=== PATIENT | male | born 1985 | race Caucasian/White ===

== ENCOUNTER 2018-03-06 07:01 | Emergency (ER) | payer SELFPAY ==
[~2018-03-06] VITALS: Ht 157.5 cm; Wt 64.0 kg
[2018-03-06] MEDS ORDERED: ONDANSETRON HCL 4MG/2ML VIAL IV ONE (07:45)
[2018-03-06] MEDS ORDERED: FOLIC ACID 1 MG, THIAMINE HCL 100 MG, MVI, ADULT NO.1 10 ML in DEXTROSE 5% WATER 1,000 ML IV ONE ×4 (07:45)
[2018-03-06 08:22] LABS: BASOPHILS % 1.2 % (0.0-2.0); CHLORIDE 103 mEq/L (98-107); EOSINOPHILS % 0.7 % (0.0-5.0); HEMATOCRIT. 40.9 % (42.0-52.0); HEMOGLOBIN. 14.3 g/dL (14.0-18.0); LYMPHOCYTES % 19.8 % (20.0-50.0); MEAN CORPUSCULAR HEMOGLOBIN 30.8 pg (28.0-32.0); MEAN CORPUSCULAR VOLUME 88.3 fL (80.0-94.0); MEAN PLATELET VOLUME 6.4 fl (7.4-10.4); MONOCYTES % 10.2 % (2.0-8.0); NEUTROPHILS % 68.1 % (40.0-76.0); PLATELET 315 x1000/uL (130-400); RED BLOOD CELL COUNT 4.63 mill/uL (4.7-6.1); RED CELL DISTRIBUTION WIDTH 14.1 % (11.6-14.6)
[2018-03-06 08:27] LABS: ETHANOL BLOOD 229 mg/dL
[2018-03-06 08:55] LABS: CLARITY URINE CLEAR (CLEAR); COLOR URINE YELLOW (YELLOW); KETONES URINE TRACE (NEGATIVE); LEUKOCYTE ESTERASE URINE NEGATIVE (NEGATIVE); NITRITE URINE NEGATIVE (NEGATIVE); OCCULT BLOOD URINE NEGATIVE (NEGATIVE); PROTEIN URINE TRACE (NEGATIVE); SPECIFIC GRAVITY URINE 1.022 (1.005-1.030)
[2018-03-06 09:10] LABS: *AMPHETAMINES SCREEN URINE NEGATIVE (NEGATIVE); *BARBITURATES SCREEN URINE NEGATIVE (NEGATIVE); *BENZODIAZEPINES SCREEN URINE NEGATIVE (NEGATIVE); CANNABINOID URINE SCREEN PRESUMTIVE POSITIVE (NEGATIVE)
[2018-03-06 09:11] LABS: *COCAINE SCREEN URINE NEGATIVE (NEGATIVE); METHADONE URINE SCREEN NEGATIVE (NEGATIVE); OPIATES URINE SCREEN NEGATIVE (NEGATIVE); PHENCYCLIDINE URINE SCREEN PRESUMTIVE POSITIVE (NEGATIVE)
[2018-03-06] MEDS ORDERED: LORAZEPAM 2MG/ML CPJ IV ONE (18:45)
[2018-03-06] MEDS ORDERED: METOCLOPRAMIDE HCL 10MG/2ML VIAL IV ONE (18:45)
[2018-03-06] MEDS ORDERED: FAMOTIDINE 20MG/2ML VIAL IV ONE (18:45)
[2018-03-07 02:59] VITALS: BP 127/69
== END 2018-03-07 03:05 | disposition home or self-care (01) ==
LOC: ER 07:01
DX: F10.229 Alcohol dependence with intoxication, unspecified (principal); R04.0 Epistaxis; K29.00 Acute gastritis without bleeding; I10 Essential (primary) hypertension; F12.10 Cannabis abuse, uncomplicated; F16.10 Hallucinogen abuse, uncomplicated; Y90.7 Blood alcohol level of 200-239 mg/100 ml
CPT/HCPCS: 36415; 80053; 80305; 81003; 83690; 85025; 85610; 96365; 96366; 96375; 99285; G0482; J2060; J2405; J2765; J3411; J3490; J7070

== ENCOUNTER 2018-03-07 13:44 | Emergency (ER) | payer SELFPAY ==
[~2018-03-07] VITALS: Ht 165.1 cm; Wt 72.0 kg
[2018-03-07 14:51] LABS: HEMATOCRIT. 42.8 % (42.0-52.0); HEMOGLOBIN. 14.9 g/dL (14.0-18.0); MEAN CORPUSCULAR HEMOGLOBIN 30.5 pg (28.0-32.0); MEAN CORPUSCULAR VOLUME 87.9 fL (80.0-94.0); MEAN PLATELET VOLUME 7.2 fl (7.4-10.4); PLATELET 297 x1000/uL (130-400); RED BLOOD CELL COUNT 4.87 mill/uL (4.7-6.1); RED CELL DISTRIBUTION WIDTH 13.6 % (11.6-14.6)
[2018-03-07] MEDS ORDERED: MAGNESIUM/ALUMINUM HYDROXIDE/SIMETHICONE 30ML UDC PO STA (14:52)
[2018-03-07] MEDS ORDERED: SODIUM CHLORIDE 0.9% 1,000 ML IV ONE (14:52)
[2018-03-07] MEDS ORDERED: FAMOTIDINE 20MG/2ML VIAL IV STA (14:52)
[2018-03-07] MEDS ORDERED: ONDANSETRON HCL 4MG/2ML VIAL IV STA (14:52)
[2018-03-07] MEDS ORDERED: MORPHINE SULFATE 4 MG/ML CPJ (NOT FOR IM USE) IV STA (14:52)
[2018-03-07 14:58] LABS: CLARITY URINE CLEAR (CLEAR); COLOR URINE YELLOW (YELLOW); KETONES URINE NEGATIVE (NEGATIVE); LEUKOCYTE ESTERASE URINE NEGATIVE (NEGATIVE); NITRITE URINE NEGATIVE (NEGATIVE); OCCULT BLOOD URINE NEGATIVE (NEGATIVE); PH URINE 7.5 (4.5-8.0); PROTEIN URINE NEGATIVE (NEGATIVE); SPECIFIC GRAVITY URINE 1.004 (1.005-1.030)
[2018-03-07] MEDS ORDERED: LORAZEPAM 2MG/ML CPJ IV ONE (15:00)
[2018-03-07 15:07] LABS: CHLORIDE 96 mEq/L (98-107)
[2018-03-07 15:11] LABS: PROTHROMBIN TIME 9.9 sec (9.1-11.1)
[2018-03-07 15:12] LABS: ETHANOL BLOOD < 10 mg/dL
[2018-03-07 15:16] LABS: CREATINE KINASE 394 IU/L (39-308)
[2018-03-07 15:25] LABS: *AMPHETAMINES SCREEN URINE NEGATIVE (NEGATIVE); *BARBITURATES SCREEN URINE NEGATIVE (NEGATIVE); *BENZODIAZEPINES SCREEN URINE NEGATIVE (NEGATIVE); *COCAINE SCREEN URINE NEGATIVE (NEGATIVE); METHADONE URINE SCREEN NEGATIVE (NEGATIVE); OPIATES URINE SCREEN NEGATIVE (NEGATIVE)
[2018-03-07 15:26] LABS: CANNABINOID URINE SCREEN NEGATIVE (NEGATIVE); PHENCYCLIDINE URINE SCREEN NEGATIVE (NEGATIVE)
[2018-03-07 15:46] LABS: PLATELET ESTIMATE NORMAL
[2018-03-07 17:48] VITALS: BP 128/74
== END 2018-03-07 18:00 | disposition home or self-care (01) ==
LOC: ER 14:20
DX: S22.31XA Fracture of one rib, right side, initial encounter for closed fracture (principal); K29.70 Gastritis, unspecified, without bleeding; R11.2 Nausea with vomiting, unspecified; F10.20 Alcohol dependence, uncomplicated; F14.10 Cocaine abuse, uncomplicated; I10 Essential (primary) hypertension; Z87.81 Personal history of (healed) traumatic fracture; W19.XXXA Unspecified fall, initial encounter; Y93.89 Activity, other specified; Y92.89 Other specified places as the place of occurrence of the external cause; Y99.8 Other external cause status; Y90.9 Presence of alcohol in blood, level not specified
CPT/HCPCS: 36415; 71045; 71250; 80053; 80305; 81003; 82550; 83690; 84484; 85025; 85610; 93005; 96361; 96374; 96375; 99285; G0482; J2060; J2270; J2405; J3490; J7030; Z7610

== ENCOUNTER 2018-03-12 14:48 | Emergency (ER) | payer SELFPAY ==
[2018-03-12 16:55] LABS: BASOPHILS % 1.2 % (0.0-2.0); CHLORIDE 101 mEq/L (98-107); EOSINOPHILS % 0.8 % (0.0-5.0); HEMATOCRIT. 38.2 % (42.0-52.0); HEMOGLOBIN. 13.1 g/dL (14.0-18.0); LYMPHOCYTES % 24.9 % (20.0-50.0); MEAN CORPUSCULAR VOLUME 87.4 fL (80.0-94.0); MEAN PLATELET VOLUME 7.1 fl (7.4-10.4); MONOCYTES % 14.4 % (2.0-8.0); NEUTROPHILS % 58.7 % (40.0-76.0); PLATELET 214 x1000/uL (130-400); RED BLOOD CELL COUNT 4.38 mill/uL (4.7-6.1); RED CELL DISTRIBUTION WIDTH 14.5 % (11.6-14.6)
[2018-03-12 16:57] LABS: PROTHROMBIN TIME 9.7 sec (9.1-11.1)
[2018-03-12] MEDS ORDERED: ONDANSETRON HCL 4MG/2ML VIAL IV STA (17:12)
[2018-03-12] MEDS ORDERED: VISCOUS LIDOCAINE 2% 15 ML UDC MM STA (17:12)
[2018-03-12] MEDS ORDERED: SODIUM CHLORIDE 0.9% 1,000 ML IV ONE (17:12)
[2018-03-12] MEDS ORDERED: LIDOCAINE HCL 2% JELLY 5ML ONE (19:01)
[2018-03-12 20:26] VITALS: BP 128/65
== END 2018-03-12 20:54 | disposition home or self-care (01) ==
LOC: ER 14:48
DX: R04.0 Epistaxis (principal); I10 Essential (primary) hypertension; F10.20 Alcohol dependence, uncomplicated
CPT/HCPCS: 30901; 36415; 80053; 83690; 85025; 85610; 96361; 96374; 99285; J2405; J7030; X7700; Z7610

== ENCOUNTER 2018-05-11 02:03 | Emergency (ER) | payer SELFPAY ==
[~2018-05-11] VITALS: Ht 160 cm; Wt 68.0 kg
[2018-05-11] MEDS ORDERED: SODIUM CHLORIDE 0.9% 1,000 ML IV NR (03:17)
[2018-05-11 03:50] LABS: BASOPHILS % 0.8 % (0.0-2.0); EOSINOPHILS % 0.7 % (0.0-5.0); HEMATOCRIT. 43.2 % (42.0-52.0); HEMOGLOBIN. 14.8 g/dL (14.0-18.0); MEAN CORPUSCULAR HEMOGLOBIN 29.1 pg (28.0-32.0); MEAN CORPUSCULAR VOLUME 84.7 fL (80.0-94.0); MEAN PLATELET VOLUME 7.5 fl (7.4-10.4); MONOCYTES % 7.9 % (2.0-8.0); NEUTROPHILS % 51.6 % (40.0-76.0); PLATELET 219 x1000/uL (130-400); RED CELL DISTRIBUTION WIDTH 13.6 % (11.6-14.6)
[2018-05-11 03:56] LABS: CHLORIDE 106 mEq/L (98-107)
[2018-05-11] MEDS ORDERED: LORAZEPAM 2MG/ML CPJ IV ONE (04:00)
[2018-05-11 04:09] LABS: ETHANOL BLOOD 341 mg/dL
[2018-05-11 04:40] LABS: CLARITY URINE CLEAR (CLEAR); COLOR URINE YELLOW (YELLOW); KETONES URINE NEGATIVE (NEGATIVE); LEUKOCYTE ESTERASE URINE NEGATIVE (NEGATIVE); NITRITE URINE NEGATIVE (NEGATIVE); OCCULT BLOOD URINE NEGATIVE (NEGATIVE); PH URINE 5.5 (4.5-8.0); PROTEIN URINE 1+ (NEGATIVE); SPECIFIC GRAVITY URINE 1.017 (1.005-1.030)
[2018-05-11 04:53] LABS: *AMPHETAMINES SCREEN URINE NEGATIVE (NEGATIVE); *BARBITURATES SCREEN URINE NEGATIVE (NEGATIVE); *BENZODIAZEPINES SCREEN URINE NEGATIVE (NEGATIVE); *COCAINE SCREEN URINE NEGATIVE (NEGATIVE); METHADONE URINE SCREEN NEGATIVE (NEGATIVE)
[2018-05-11 04:54] LABS: CANNABINOID URINE SCREEN NEGATIVE (NEGATIVE); OPIATES URINE SCREEN NEGATIVE (NEGATIVE); PHENCYCLIDINE URINE SCREEN NEGATIVE (NEGATIVE)
[2018-05-11] MEDS ORDERED: SODIUM CHLORIDE 0.9% 1,000 ML IV ONE (06:41)
[2018-05-11 10:03] VITALS: BP 121/66
== END 2018-05-11 10:06 | disposition home or self-care (01) ==
LOC: ER 02:03
DX: S62.512A Displaced fracture of proximal phalanx of left thumb, initial encounter for closed fracture (principal); S00.83XA Contusion of other part of head, initial encounter; M25.571 Pain in right ankle and joints of right foot; I10 Essential (primary) hypertension; F15.10 Other stimulant abuse, uncomplicated; F10.229 Alcohol dependence with intoxication, unspecified; W01.0XXA Fall on same level from slipping, tripping and stumbling without subsequent striking against object, initial encounter; Y93.89 Activity, other specified; Y92.89 Other specified places as the place of occurrence of the external cause; Y99.8 Other external cause status; Y90.8 Blood alcohol level of 240 mg/100 ml or more
CPT/HCPCS: 36415; 70450; 73130; 73610; 80048; 80305; 81003; 85025; 96374; 99285; G0482; J2060; J7030

== ENCOUNTER 2018-10-26 21:13 | Emergency (ER) | payer SELFPAY ==
[~2018-10-26] VITALS: Ht 160 cm; Wt 62.0 kg
[2018-10-26 23:47] LABS: HEMATOCRIT. 42.7 % (42.0-52.0); MEAN CORPUSCULAR VOLUME 88.1 fL (80.0-94.0); MEAN PLATELET VOLUME 6.6 fl (7.4-10.4); PLATELET 126 x1000/uL (130-400); RED BLOOD CELL COUNT 4.84 mill/uL (4.7-6.1); RED CELL DISTRIBUTION WIDTH 13.4 % (11.6-14.6)
[2018-10-26 23:54] LABS: CHLORIDE 106 mEq/L (98-107)
[2018-10-27 00:08] LABS: CLARITY URINE CLEAR (CLEAR); COLOR URINE YELLOW (YELLOW); KETONES URINE NEGATIVE (NEGATIVE); LEUKOCYTE ESTERASE URINE NEGATIVE (NEGATIVE); NITRITE URINE NEGATIVE (NEGATIVE); OCCULT BLOOD URINE NEGATIVE (NEGATIVE); PH URINE 5.5 (4.5-8.0); PROTEIN URINE 1+ (NEGATIVE); SPECIFIC GRAVITY URINE 1.006 (1.005-1.030); UROBILINOGEN URINE 0.2 E.U./dL (0.2-1.0)
[2018-10-27 00:22] LABS: *AMPHETAMINES SCREEN URINE NEGATIVE (NEGATIVE); *BARBITURATES SCREEN URINE NEGATIVE (NEGATIVE)
[2018-10-27 00:23] LABS: *BENZODIAZEPINES SCREEN URINE NEGATIVE (NEGATIVE); *COCAINE SCREEN URINE NEGATIVE (NEGATIVE); CANNABINOID URINE SCREEN NEGATIVE (NEGATIVE); METHADONE URINE SCREEN NEGATIVE (NEGATIVE); OPIATES URINE SCREEN NEGATIVE (NEGATIVE); PHENCYCLIDINE URINE SCREEN NEGATIVE (NEGATIVE)
[2018-10-27 00:47] LABS: ETHANOL BLOOD 415 mg/dL
[2018-10-27 01:17] LABS: PLATELET ESTIMATE NORMAL
[2018-10-27 07:31] VITALS: BP 125/85
== END 2018-10-27 09:22 | disposition home or self-care (01) ==
LOC: ER 21:13
DX: F10.229 Alcohol dependence with intoxication, unspecified (principal); I10 Essential (primary) hypertension; F15.10 Other stimulant abuse, uncomplicated; Y90.8 Blood alcohol level of 240 mg/100 ml or more; Z59.0 Homelessness
CPT/HCPCS: 36415; 80305; 80320; 99283; G0480

== ENCOUNTER 2018-11-09 21:12 | Inpatient (IN) | payer SELFPAY ==
[~2018-11-09] VITALS: Ht 167.6 cm; Wt 72.6 kg
[2018-11-09] MEDS ORDERED: PANTOPRAZOLE SODIUM 40 MG/VIAL IV STA (22:39)
[2018-11-09] MEDS ORDERED: ONDANSETRON HCL 4MG/2ML INJ IV STA (22:39)
[2018-11-09] MEDS ORDERED: TETANUS, DIPHTHERIA, PERTUSSIS VAC/PF 0.5ML (>7YR OLD) IM ONE (22:45)
[2018-11-09] MEDS ORDERED: DEXT 5%/0.9% NACL 1,000 ML IV ONE (22:45)
[2018-11-09] MEDS ORDERED: HALOPERIDOL LACTATE 5MG/ML VIAL IM ONE (22:45)
[2018-11-09] MEDS ORDERED: LORAZEPAM 2MG/ML CPJ IV ONE (23:00)
[2018-11-09 23:08] LABS: BASOPHILS % 1.9 % (0.0-2.0); EOSINOPHILS % 1.1 % (0.0-5.0); HEMATOCRIT. 41.2 % (42.0-52.0); HEMOGLOBIN. 14.6 g/dL (14.0-18.0); LYMPHOCYTES % 32.5 % (20.0-50.0); MEAN CORPUSCULAR HEMOGLOBIN 31.7 pg (28.0-32.0); MEAN CORPUSCULAR VOLUME 89.4 fL (80.0-94.0); MEAN PLATELET VOLUME 6.3 fl (7.4-10.4); MONOCYTES % 13.1 % (2.0-8.0); NEUTROPHILS % 51.4 % (40.0-76.0); PLATELET 102 x1000/uL (130-400); RED BLOOD CELL COUNT 4.61 mill/uL (4.7-6.1); RED CELL DISTRIBUTION WIDTH 13.9 % (11.6-14.6)
[2018-11-09 23:14] LABS: CHLORIDE 105 mEq/L (98-107); PROTHROMBIN TIME 10.3 sec (9.6-11.0)
[2018-11-09 23:21] LABS: CREATINE KINASE 335 IU/L (39-308)
[2018-11-09] MEDS ORDERED: MORPHINE SULFATE 2 MG/ML CPJ (NOT FOR IM USE) IV ONE (23:30)
[2018-11-09 23:57] LABS: ETHANOL BLOOD 461 mg/dL
[2018-11-10 00:06] LABS: CLARITY URINE CLEAR (CLEAR); COLOR URINE YELLOW (YELLOW); KETONES URINE NEGATIVE (NEGATIVE); LEUKOCYTE ESTERASE URINE NEGATIVE (NEGATIVE); NITRITE URINE NEGATIVE (NEGATIVE); OCCULT BLOOD URINE TRACE (NEGATIVE); PH URINE 5.5 (4.5-8.0); PROTEIN URINE 2+ (NEGATIVE); SPECIFIC GRAVITY URINE 1.006 (1.005-1.030); UROBILINOGEN URINE 0.2 E.U./dL (0.2-1.0)
[2018-11-10] MEDS ORDERED: ONDANSETRON HCL 4MG/2ML INJ IV PRN (00:30)
[2018-11-10] MEDS ORDERED: CLONIDINE 0.1MG TABLET PO PRN (00:30)
[2018-11-10 00:33] LABS: *AMPHETAMINES SCREEN URINE NEGATIVE (NEGATIVE)
[2018-11-10 00:34] LABS: *BARBITURATES SCREEN URINE NEGATIVE (NEGATIVE); *BENZODIAZEPINES SCREEN URINE NEGATIVE (NEGATIVE); *COCAINE SCREEN URINE NEGATIVE (NEGATIVE); METHADONE URINE SCREEN NEGATIVE (NEGATIVE); OPIATES URINE SCREEN NEGATIVE (NEGATIVE)
[2018-11-10 00:36] LABS: CANNABINOID URINE SCREEN NEGATIVE (NEGATIVE); PHENCYCLIDINE URINE SCREEN NEGATIVE (NEGATIVE)
[2018-11-10] MEDS ORDERED: MVI, ADULT NO.1 10 ML, FOLIC ACID 1 MG, THIAMINE HCL 100 MG in SODIUM CHLORIDE 0.9% 1,0... IV SCH ×4 (10:00)
[2018-11-10] MEDS: PANTOPRAZOLE SODIUM 40 MG/VIAL IV SCH (10:01)
[2018-11-10] MEDS: CHLORDIAZEPOXIDE 25MG CAPSULE PO SCH ×3 (10:02→21:52)
[2018-11-10 11:30] VITALS: BP 132/85
[2018-11-10 12:00] VITALS: BP 132/85
[2018-11-10 16:00] VITALS: BP 137/80
[2018-11-10] MEDS: LORAZEPAM 2MG/ML CPJ IV PRN (17:31)
[2018-11-10] MEDS: DEXT 5%/0.45% NACL 1000ML 1,000 ML IV SCH (18:19)
[2018-11-10 20:00] VITALS: BP 137/85
[2018-11-10] MEDS: HYDROMORPHONE HCL/PF 2MG/ML CPJ IV PRN (20:18)
[2018-11-10] MEDS ORDERED: POTASSIUM CHLORIDE 20MEQ TABLET SR PO SCH (21:30)
[2018-11-11] VITALS: BP 134/86
[2018-11-11 04:00] VITALS: BP 125/75
[2018-11-11] MEDS: CHLORDIAZEPOXIDE 25MG CAPSULE PO SCH ×3 (05:34→21:09)
[2018-11-11 07:24] LABS: BASOPHILS % 0.6 % (0.0-2.0); EOSINOPHILS % 0.8 % (0.0-5.0); HEMATOCRIT. 42.5 % (42.0-52.0); HEMOGLOBIN. 14.7 g/dL (14.0-18.0); LYMPHOCYTES % 15.8 % (20.0-50.0); MEAN CORPUSCULAR HEMOGLOBIN 31.1 pg (28.0-32.0); MEAN CORPUSCULAR VOLUME 89.9 fL (80.0-94.0); MEAN PLATELET VOLUME 7.1 fl (7.4-10.4); MONOCYTES % 14.5 % (2.0-8.0); NEUTROPHILS % 68.3 % (40.0-76.0); PLATELET 75 x1000/uL (130-400); RED BLOOD CELL COUNT 4.73 mill/uL (4.7-6.1); RED CELL DISTRIBUTION WIDTH 13.8 % (11.6-14.6)
[2018-11-11 07:31] LABS: CHLORIDE 103 mEq/L (98-107)
[2018-11-11 08:00] VITALS: BP 144/82
[2018-11-11] MEDS: HYDROMORPHONE HCL/PF 2MG/ML CPJ IV PRN ×2 (10:17→18:36)
[2018-11-11] MEDS: PANTOPRAZOLE SODIUM 40 MG/VIAL IV SCH (10:17)
[2018-11-11] MEDS: DEXT 5%/0.45% NACL 1000ML 1,000 ML IV SCH ×2 (10:24→21:09)
[2018-11-11] MEDS: LORAZEPAM 2MG/ML CPJ IV PRN (11:46)
[2018-11-11 12:05] VITALS: BP 132/86
[2018-11-11 16:25] VITALS: BP 152/90
[2018-11-11 20:00] VITALS: BP 142/93
[2018-11-12] VITALS: BP 123/89
[2018-11-12 04:00] VITALS: BP 108/66
[2018-11-12] MEDS: CHLORDIAZEPOXIDE 25MG CAPSULE PO SCH ×2 (05:42→13:50)
[2018-11-12 08:00] VITALS: BP 106/67
[2018-11-12] MEDS: PANTOPRAZOLE SODIUM 40 MG/VIAL IV SCH (08:26)
[2018-11-12] MEDS: DEXT 5%/0.45% NACL 1000ML 1,000 ML IV SCH (10:06)
[2018-11-12 12:00] VITALS: BP 108/68
[2018-11-12 16:00] VITALS: BP 111/62
[2018-11-12 16:28] VITALS: BP 111/62
== END 2018-11-12 16:44 | disposition home or self-care (01) | DRG 282 ==
LOC: ER 21:12 → 6EST 23:51 → EDBEDREQTM 23:56 → EDBEDREQ 23:56 → SUPCPDRO 11-10 00:18 → EDBEDREQSVC 11-10 07:28 → ENRESERV 11-10 10:05 → 6EST 11-10 14:12
PROVIDERS: ADMIT Hospitalist; ATTEND Hospitalist
DX: K85.90 Acute pancreatitis without necrosis or infection, unspecified (principal); F10.129 Alcohol abuse with intoxication, unspecified; I10 Essential (primary) hypertension
CPT/HCPCS: 36415; 71045; 80305; 80320; 82550; 83735; 90715; 93005; 96361; 96374; 96375; 97162; 99285; C1893; C9113; J1170; J2060; J2270; J2405; J3411; J3490; J7030; J7042; G0480

== ENCOUNTER 2018-11-13 10:19 | Emergency (ER) | payer SELFPAY ==
[~2018-11-13] VITALS: Ht 175.3 cm; Wt 63.0 kg
[2018-11-13] MEDS ORDERED: SODIUM CHLORIDE 0.9% 1,000 ML IV ONE (11:34)
[2018-11-13 11:57] LABS: BASOPHILS % 0.8 % (0.0-2.0); EOSINOPHILS % 2.3 % (0.0-5.0); HEMATOCRIT. 45.4 % (42.0-52.0); HEMOGLOBIN. 15.7 g/dL (14.0-18.0); LYMPHOCYTES % 27.8 % (20.0-50.0); MEAN CORPUSCULAR HEMOGLOBIN 31.5 pg (28.0-32.0); MEAN CORPUSCULAR VOLUME 91.3 fL (80.0-94.0); MEAN PLATELET VOLUME 8.4 fl (7.4-10.4); MONOCYTES % 14.9 % (2.0-8.0); NEUTROPHILS % 54.2 % (40.0-76.0); PLATELET 114 x1000/uL (130-400); RED BLOOD CELL COUNT 4.98 mill/uL (4.7-6.1); RED CELL DISTRIBUTION WIDTH 13.6 % (11.6-14.6)
[2018-11-13 11:59] LABS: CHLORIDE 109 mEq/L (98-107)
[2018-11-13 12:12] LABS: ETHANOL BLOOD 346 mg/dL
[2018-11-13 12:38] LABS: CLARITY URINE CLEAR (CLEAR); COLOR URINE YELLOW (YELLOW); KETONES URINE NEGATIVE (NEGATIVE); LEUKOCYTE ESTERASE URINE NEGATIVE (NEGATIVE); NITRITE URINE NEGATIVE (NEGATIVE); OCCULT BLOOD URINE NEGATIVE (NEGATIVE); PH URINE 5.5 (4.5-8.0); PROTEIN URINE NEGATIVE (NEGATIVE); SPECIFIC GRAVITY URINE 1.002 (1.005-1.030); UROBILINOGEN URINE 0.2 E.U./dL (0.2-1.0)
[2018-11-13 12:52] LABS: *AMPHETAMINES SCREEN URINE NEGATIVE (NEGATIVE)
[2018-11-13 12:53] LABS: *BARBITURATES SCREEN URINE NEGATIVE (NEGATIVE); *BENZODIAZEPINES SCREEN URINE PRESUMTIVE POSITIVE (NEGATIVE); *COCAINE SCREEN URINE NEGATIVE (NEGATIVE); METHADONE URINE SCREEN NEGATIVE (NEGATIVE); OPIATES URINE SCREEN NEGATIVE (NEGATIVE); PHENCYCLIDINE URINE SCREEN NEGATIVE (NEGATIVE)
[2018-11-13 12:54] LABS: CANNABINOID URINE SCREEN NEGATIVE (NEGATIVE)
[2018-11-13 16:21] VITALS: BP 124/79
== END 2018-11-13 18:06 | disposition left against medical advice (07) ==
LOC: ER 10:19
DX: F10.229 Alcohol dependence with intoxication, unspecified (principal); K76.0 Fatty (change of) liver, not elsewhere classified; Y90.8 Blood alcohol level of 240 mg/100 ml or more; F17.210 Nicotine dependence, cigarettes, uncomplicated; F12.10 Cannabis abuse, uncomplicated; Z87.19 Personal history of other diseases of the digestive system
CPT/HCPCS: 36415; 70450; 71045; 74177; 80053; 80305; 80320; 81003; 82962; 85025; 96360; 99284; J7030; Z7610; G0480

== ENCOUNTER 2018-11-28 11:13 | Emergency (ER) | payer SELFPAY ==
[~2018-11-28] VITALS: Ht 160 cm; Wt 65.0 kg
[2018-11-28 12:55] LABS: BASOPHILS % 1.2 % (0.0-2.0); EOSINOPHILS % 1.9 % (0.0-5.0); HEMATOCRIT. 43.8 % (42.0-52.0); MEAN CORPUSCULAR HEMOGLOBIN 31.5 pg (28.0-32.0); MEAN CORPUSCULAR VOLUME 92.2 fL (80.0-94.0); NEUTROPHILS % 60.9 % (40.0-76.0); PLATELET 181 x1000/uL (130-400); RED BLOOD CELL COUNT 4.75 mill/uL (4.7-6.1); RED CELL DISTRIBUTION WIDTH 14.2 % (11.6-14.6)
[2018-11-28 13:00] LABS: CHLORIDE 108 mEq/L (98-107)
[2018-11-28 13:01] LABS: CLARITY URINE CLEAR (CLEAR); COLOR URINE YELLOW (YELLOW); KETONES URINE NEGATIVE (NEGATIVE); LEUKOCYTE ESTERASE URINE NEGATIVE (NEGATIVE); NITRITE URINE NEGATIVE (NEGATIVE); OCCULT BLOOD URINE NEGATIVE (NEGATIVE); PROTEIN URINE TRACE (NEGATIVE); UROBILINOGEN URINE 0.2 E.U./dL (0.2-1.0)
[2018-11-28 13:15] LABS: ETHANOL BLOOD 341 mg/dL
[2018-11-28 13:26] LABS: *BARBITURATES SCREEN URINE NEGATIVE (NEGATIVE)
[2018-11-28 13:27] LABS: *AMPHETAMINES SCREEN URINE NEGATIVE (NEGATIVE); *BENZODIAZEPINES SCREEN URINE NEGATIVE (NEGATIVE); *COCAINE SCREEN URINE NEGATIVE (NEGATIVE); METHADONE URINE SCREEN NEGATIVE (NEGATIVE); OPIATES URINE SCREEN NEGATIVE (NEGATIVE); PHENCYCLIDINE URINE SCREEN NEGATIVE (NEGATIVE)
[2018-11-28 13:28] LABS: CANNABINOID URINE SCREEN PRESUMTIVE POSITIVE (NEGATIVE)
[2018-11-28 14:15] VITALS: BP 129/67
== END 2018-11-28 15:40 | disposition left against medical advice (07) ==
LOC: ER 11:13
DX: S49.92XA Unspecified injury of left shoulder and upper arm, initial encounter (principal); R19.01 Right upper quadrant abdominal swelling, mass and lump; F10.20 Alcohol dependence, uncomplicated; F12.10 Cannabis abuse, uncomplicated; F17.200 Nicotine dependence, unspecified, uncomplicated; X58.XXXA Exposure to other specified factors, initial encounter; Y93.66 Activity, soccer; Y92.322 Soccer field as the place of occurrence of the external cause; Y99.8 Other external cause status; Y90.8 Blood alcohol level of 240 mg/100 ml or more
CPT/HCPCS: 36415; 73130; 80305; 80320; 99284; G0480

== ENCOUNTER 2018-11-28 18:36 | Emergency (ER) | payer SELFPAY ==
[~2018-11-28] VITALS: Ht 165.1 cm; Wt 75.0 kg
[2018-11-28 20:56] LABS: *AMPHETAMINES SCREEN URINE NEGATIVE (NEGATIVE); *BARBITURATES SCREEN URINE NEGATIVE (NEGATIVE)
[2018-11-28 20:57] LABS: *BENZODIAZEPINES SCREEN URINE NEGATIVE (NEGATIVE); *COCAINE SCREEN URINE NEGATIVE (NEGATIVE); CANNABINOID URINE SCREEN NEGATIVE (NEGATIVE); METHADONE URINE SCREEN NEGATIVE (NEGATIVE); OPIATES URINE SCREEN NEGATIVE (NEGATIVE); PHENCYCLIDINE URINE SCREEN NEGATIVE (NEGATIVE)
[2018-11-28 21:08] LABS: BASOPHILS % 1.4 % (0.0-2.0); EOSINOPHILS % 1.9 % (0.0-5.0); HEMATOCRIT. 43.9 % (42.0-52.0); HEMOGLOBIN. 15.1 g/dL (14.0-18.0); LYMPHOCYTES % 30.5 % (20.0-50.0); MEAN CORPUSCULAR HEMOGLOBIN 31.3 pg (28.0-32.0); MEAN CORPUSCULAR VOLUME 91.2 fL (80.0-94.0); MEAN PLATELET VOLUME 6.8 fl (7.4-10.4); MONOCYTES % 11.2 % (2.0-8.0); PLATELET 175 x1000/uL (130-400); RED BLOOD CELL COUNT 4.81 mill/uL (4.7-6.1); RED CELL DISTRIBUTION WIDTH 14.2 % (11.6-14.6)
[2018-11-28 21:14] LABS: CHLORIDE 108 mEq/L (98-107)
[2018-11-28 21:26] LABS: ETHANOL BLOOD 344 mg/dL
[2018-11-29] MEDS ORDERED: ACETAMINOPHEN 500MG TABLET PO NR
[2018-11-29] MEDS ORDERED: DIPHENHYDRAMINE 25MG CAPSULE PO NR
[2018-11-29] MEDS ORDERED: IBUPROFEN 600MG TABLET PO ONE (04:00)
[2018-11-29] MEDS ORDERED: ONDANSETRON HCL 4MG/2ML INJ IV ONE (04:15)
[2018-11-29 06:00] VITALS: BP 132/89
== END 2018-11-29 06:13 | disposition home or self-care (01) ==
LOC: ER 18:36
DX: F10.229 Alcohol dependence with intoxication, unspecified (principal); F12.10 Cannabis abuse, uncomplicated; F17.210 Nicotine dependence, cigarettes, uncomplicated; Y90.8 Blood alcohol level of 240 mg/100 ml or more; Z71.6 Tobacco abuse counseling
CPT/HCPCS: 36415; 70450; 71045; 73110; 80053; 80305; 80320; 82962; 85025; 96374; 99284; 99406; J2405; Q0163; G0480

== ENCOUNTER 2018-12-05 16:12 | Emergency (ER) | payer SELFPAY ==
[~2018-12-05] VITALS: Ht 165.1 cm; Wt 77.0 kg
[2018-12-05 19:30] LABS: BASOPHILS % 1.1 % (0.0-2.0); EOSINOPHILS % 1.4 % (0.0-5.0); HEMATOCRIT. 44.4 % (42.0-52.0); HEMOGLOBIN. 15.5 g/dL (14.0-18.0); LYMPHOCYTES % 32.2 % (20.0-50.0); MEAN CORPUSCULAR HEMOGLOBIN 31.9 pg (28.0-32.0); MEAN CORPUSCULAR VOLUME 91.5 fL (80.0-94.0); NEUTROPHILS % 54.3 % (40.0-76.0); PLATELET 104 x1000/uL (130-400); RED BLOOD CELL COUNT 4.85 mill/uL (4.7-6.1)
[2018-12-05 19:33] LABS: CHLORIDE 107 mEq/L (98-107)
[2018-12-05 19:49] LABS: ETHANOL BLOOD 358 mg/dL
[2018-12-05 22:56] VITALS: BP 124/73
== END 2018-12-05 22:56 | disposition home or self-care (01) ==
LOC: ER 16:12
DX: F10.129 Alcohol abuse with intoxication, unspecified (principal); R41.82 Altered mental status, unspecified; F12.10 Cannabis abuse, uncomplicated; Z87.898 Personal history of other specified conditions
CPT/HCPCS: 36415; 80320; 99283; G0480

== ENCOUNTER 2019-02-03 20:29 | Inpatient (IN) | payer SELFPAY ==
[~2019-02-03] VITALS: Ht 160 cm; Wt 69.9 kg
[2019-02-03] MEDS ORDERED: ONDANSETRON HCL 4MG/2ML INJ IV STA (21:31)
[2019-02-03] MEDS ORDERED: FOLIC ACID 1 MG, THIAMINE HCL 100 MG, MVI, ADULT NO.1 10 ML in DEXTROSE 5% WATER 1,000 ML IV ONE ×4 (21:45)
[2019-02-03] MEDS ORDERED: FAMOTIDINE 20MG/2ML VIAL IV ONE (21:45)
[2019-02-03 21:53] LABS: HEMATOCRIT. 48.4 % (42.0-52.0); HEMOGLOBIN. 16.5 g/dL (14.0-18.0); MEAN CORPUSCULAR HEMOGLOBIN 31.3 pg (28.0-32.0); MEAN CORPUSCULAR VOLUME 91.8 fL (80.0-94.0); MEAN PLATELET VOLUME 7.5 fl (7.4-10.4); PLATELET 121 x1000/uL (130-400); RED BLOOD CELL COUNT 5.27 mill/uL (4.7-6.1); RED CELL DISTRIBUTION WIDTH 13.5 % (11.6-14.6)
[2019-02-03 21:57] LABS: CHLORIDE 103 mEq/L (98-107)
[2019-02-03 22:01] LABS: ETHANOL BLOOD 128 mg/dL
[2019-02-03 22:12] LABS: PLATELET ESTIMATE DECREASED
[2019-02-03] MEDS ORDERED: DIAZEPAM 5 MG/ML 2ML CPJ IV ONE ×2 (22:15→23:00)
[2019-02-03] MEDS ORDERED: SODIUM CHLORIDE 0.9% 100 ML IV ONE (22:15)
[2019-02-03] MEDS ORDERED: POTASSIUM CHLORIDE 20MEQ/PACKET PO ONE (23:00)
[2019-02-03] MEDS ORDERED: KCL 20MEQ/100ML PREMIX 100 ML IV ONE (23:00)
[2019-02-04 04:30] VITALS: BP 131/88
[2019-02-04 05:13] VITALS: BP 131/88
[2019-02-04] MEDS ORDERED: LORAZEPAM 2MG/ML CPJ IV PRN ×2 (06:15→14:00)
[2019-02-04 08:00] VITALS: BP 136/96
[2019-02-04] MEDS: THIAMINE HCL 100MG TABLET PO SCH (09:18)
[2019-02-04] MEDS: FOLIC ACID 1MG TABLET PO SCH (09:18)
[2019-02-04] MEDS: MULTIVITAMINS,THER W-MINERALS TABLET PO SCH (09:18)
[2019-02-04 10:19] LABS: HEMATOCRIT. 43.1 % (42.0-52.0); HEMOGLOBIN. 14.9 g/dL (14.0-18.0); MEAN CORPUSCULAR HEMOGLOBIN 31.5 pg (28.0-32.0); MEAN PLATELET VOLUME 7.6 fl (7.4-10.4); PLATELET 93 x1000/uL (130-400); RED BLOOD CELL COUNT 4.73 mill/uL (4.7-6.1); RED CELL DISTRIBUTION WIDTH 13.5 % (11.6-14.6)
[2019-02-04 10:37] LABS: CHLORIDE 102 mEq/L (98-107)
[2019-02-04 10:50] LABS: LDL CHOLESTEROL 65 mg/dL (5-100)
[2019-02-04 10:53] LABS: HDL CHOLESTEROL 110 mg/dL (40-59)
[2019-02-04 12:00] VITALS: BP 179/88
[2019-02-04] MEDS: SODIUM CHLORIDE 0.9% 1,000 ML IV SCH ×2 (13:16→20:53)
[2019-02-04] MEDS: CHLORDIAZEPOXIDE 25MG CAPSULE PO SCH ×2 (13:16→21:00)
[2019-02-04] MEDS ORDERED: HYDROCODONE/ACETAMINOPHEN 5/325MG TABLET PO PRN (13:30)
[2019-02-04] MEDS ORDERED: ONDANSETRON HCL 4MG/2ML INJ IV PRN (13:30)
[2019-02-04] MEDS ORDERED: CLONIDINE 0.1MG TABLET PO PRN (13:30)
[2019-02-04] MEDS ORDERED: ACETAMINOPHEN 325MG TABLET PO PRN (13:30)
[2019-02-04] MEDS ORDERED: LORAZEPAM 0.5MG TABLET PO PRN (13:30)
[2019-02-04] MEDS ORDERED: DOCUSATE SODIUM 100MG CAPSULE PO PRN (13:30)
[2019-02-04] MEDS ORDERED: IPRATROPIUM/ALBUTEROL 0.5-3(2.5)MG/3ML NEB INH PRN (13:30)
[2019-02-04] MEDS ORDERED: PANTOPRAZOLE 40MG DR TABLET PO SCH (14:00)
[2019-02-04 14:04] LABS: PLATELET ESTIMATE DECREASED
[2019-02-04] MEDS ORDERED: MAGNESIUM 4 G PREMIX 100 ML IV NR (14:30)
[2019-02-04 16:00] VITALS: BP 109/65
[2019-02-04 16:20] LABS: PROTHROMBIN TIME 10.4 sec (9.6-11.0)
[2019-02-04 17:19] LABS: VITAMIN B12 SERUM 859 pg/mL (211-911)
[2019-02-04 18:00] LABS: HEPATITIS B SURFACE ANTIGEN NEGATIVE
[2019-02-04 18:01] LABS: HEPATITIS A AB IGM NEGATIVE (NEGATIVE)
[2019-02-04 20:00] VITALS: BP 125/77
[2019-02-05] VITALS: BP 128/85
[2019-02-05 04:00] VITALS: BP 110/75
[2019-02-05] MEDS: CHLORDIAZEPOXIDE 25MG CAPSULE PO SCH ×3 (05:26→21:27)
[2019-02-05 08:00] VITALS: BP 132/92
[2019-02-05] MEDS ORDERED: MAGNESIUM 4 G PREMIX 100 ML IV ONE (08:00)
[2019-02-05] MEDS: MULTIVITAMINS,THER W-MINERALS TABLET PO SCH (10:12)
[2019-02-05] MEDS: FOLIC ACID 1MG TABLET PO SCH (10:12)
[2019-02-05] MEDS: PANTOPRAZOLE 40MG DR TABLET PO SCH ×2 (10:12→21:27)
[2019-02-05] MEDS: THIAMINE HCL 100MG TABLET PO SCH (10:13)
[2019-02-05] MEDS: SODIUM CHLORIDE 0.9% 1,000 ML IV SCH (10:13)
[2019-02-05 12:00] VITALS: BP 102/56
[2019-02-05 12:03] LABS: BASOPHILS % 0.2 % (0.0-2.0); EOSINOPHILS % 0.9 % (0.0-5.0); HEMATOCRIT. 42.7 % (42.0-52.0); HEMOGLOBIN. 14.6 g/dL (14.0-18.0); LYMPHOCYTES % 8.5 % (20.0-50.0); MEAN CORPUSCULAR HEMOGLOBIN 31.4 pg (28.0-32.0); MEAN CORPUSCULAR VOLUME 91.4 fL (80.0-94.0); MEAN PLATELET VOLUME 8.5 fl (7.4-10.4); MONOCYTES % 9.6 % (2.0-8.0); NEUTROPHILS % 80.8 % (40.0-76.0); PLATELET 97 x1000/uL (130-400); RED BLOOD CELL COUNT 4.66 mill/uL (4.7-6.1); RED CELL DISTRIBUTION WIDTH 13.3 % (11.6-14.6)
[2019-02-05 12:21] LABS: CHLORIDE 103 mEq/L (98-107)
[2019-02-05] MEDS ORDERED: POTASSIUM CHLORIDE INJ 40 MEQ in DEXT 5% WATER 250 ML IV NR (15:30)
[2019-02-05 16:00] VITALS: BP 100/52
[2019-02-05 20:00] VITALS: BP 110/71
[2019-02-06] VITALS: BP 92/49
[2019-02-06 04:00] VITALS: BP 101/59
[2019-02-06] MEDS: CHLORDIAZEPOXIDE 25MG CAPSULE PO SCH ×2 (05:01→14:57)
[2019-02-06 06:43] LABS: BASOPHILS % 0.3 % (0.0-2.0); EOSINOPHILS % 2.1 % (0.0-5.0); HEMATOCRIT. 40.7 % (42.0-52.0); LYMPHOCYTES % 19.3 % (20.0-50.0); MEAN CORPUSCULAR HEMOGLOBIN 31.3 pg (28.0-32.0); MEAN CORPUSCULAR VOLUME 90.9 fL (80.0-94.0); MEAN PLATELET VOLUME 8.3 fl (7.4-10.4); MONOCYTES % 12.9 % (2.0-8.0); NEUTROPHILS % 65.4 % (40.0-76.0); PLATELET 101 x1000/uL (130-400); RED BLOOD CELL COUNT 4.48 mill/uL (4.7-6.1); RED CELL DISTRIBUTION WIDTH 13.3 % (11.6-14.6)
[2019-02-06 06:46] LABS: CHLORIDE 102 mEq/L (98-107)
[2019-02-06 08:00] VITALS: BP 119/75
[2019-02-06] MEDS: MULTIVITAMINS,THER W-MINERALS TABLET PO SCH (08:36)
[2019-02-06] MEDS: THIAMINE HCL 100MG TABLET PO SCH (08:36)
[2019-02-06] MEDS: FOLIC ACID 1MG TABLET PO SCH (08:36)
[2019-02-06] MEDS: PANTOPRAZOLE 40MG DR TABLET PO SCH (08:36)
[2019-02-06] MEDS ORDERED: POTASSIUM CHLORIDE 20MEQ TABLET SR PO SCH (11:45)
[2019-02-06 12:00] VITALS: BP 129/77
[2019-02-07 04:13] LABS: HIV SCREEN 4G Non Reactive (Non Reactive)
== END 2019-02-06 16:17 | disposition left against medical advice (07) | DRG 280 ==
LOC: ER 20:29 → EDBEDREQ 23:46 → EDBEDREQTM 23:46 → ENRESERV 02-04 04:06 → 5WST 02-04 04:31
PROVIDERS: ADMIT Internal Medicine; ATTEND Internal Medicine
DX: K70.30 Alcoholic cirrhosis of liver without ascites (principal); G92 Toxic encephalopathy; K85.20 Alcohol induced acute pancreatitis without necrosis or infection; F10.231 Alcohol dependence with withdrawal delirium; D69.6 Thrombocytopenia, unspecified; R56.9 Unspecified convulsions; E83.42 Hypomagnesemia; E78.1 Pure hyperglyceridemia; E87.6 Hypokalemia; F15.10 Other stimulant abuse, uncomplicated; I10 Essential (primary) hypertension; K76.0 Fatty (change of) liver, not elsewhere classified; Z53.21 Procedure and treatment not carried out due to patient leaving prior to being seen by health care provider; Z79.899 Other long term (current) drug therapy
CPT/HCPCS: 36415; 71045; 80048; 80061; 80320; 82140; 82270; 82607; 82746; 83036; 83735; 84443; 86705; 86709; 86803; 87340; 87389; 87493; 93005; 96365; 96375; 99285; J2060; J2405; J3411; J3475; J3480; J3490; J7030; J7050; J7060; J7070; G0480

== ENCOUNTER 2019-02-15 10:41 | Emergency (ER) | payer SELFPAY ==
[~2019-02-15] VITALS: Ht 160 cm; Wt 73.0 kg
[2019-02-15 17:19] VITALS: BP 136/97
== END 2019-02-15 17:22 | disposition home or self-care (01) ==
LOC: ER 10:48
DX: S22.31XA Fracture of one rib, right side, initial encounter for closed fracture (principal); F10.129 Alcohol abuse with intoxication, unspecified; I10 Essential (primary) hypertension; R56.9 Unspecified convulsions; F15.10 Other stimulant abuse, uncomplicated; Z59.0 Homelessness; Y90.9 Presence of alcohol in blood, level not specified; W01.0XXA Fall on same level from slipping, tripping and stumbling without subsequent striking against object, initial encounter; Y93.89 Activity, other specified; Y92.89 Other specified places as the place of occurrence of the external cause; Y99.8 Other external cause status
CPT/HCPCS: 71045; 73110; 99283

== ENCOUNTER 2019-02-23 13:43 | Emergency (ER) | payer SELFPAY ==
[~2019-02-23] VITALS: Ht 165.1 cm; Wt 68.0 kg
[2019-02-23] MEDS ORDERED: KETOROLAC 30MG/ML VIAL IV STA (15:41)
[2019-02-23] MEDS ORDERED: SODIUM CHLORIDE 0.9% 1,000 ML IV ONE (15:41)
[2019-02-23 16:20] LABS: BASOPHILS % 2.8 % (0.0-2.0); EOSINOPHILS % 1.3 % (0.0-5.0); HEMATOCRIT. 45.2 % (42.0-52.0); HEMOGLOBIN. 15.6 g/dL (14.0-18.0); LYMPHOCYTES % 45.3 % (20.0-50.0); MEAN CORPUSCULAR HEMOGLOBIN 31.3 pg (28.0-32.0); MEAN CORPUSCULAR VOLUME 90.5 fL (80.0-94.0); MONOCYTES % 11.5 % (2.0-8.0); NEUTROPHILS % 39.1 % (40.0-76.0); PLATELET 215 x1000/uL (130-400); RED BLOOD CELL COUNT 4.99 mill/uL (4.7-6.1); RED CELL DISTRIBUTION WIDTH 13.4 % (11.6-14.6)
[2019-02-23 16:22] LABS: CHLORIDE 108 mEq/L (98-107)
[2019-02-23 16:41] LABS: ETHANOL BLOOD 472 mg/dL
[2019-02-23] MEDS ORDERED: POTASSIUM CHLORIDE 20MEQ TABLET SR PO ONE (16:45)
[2019-02-23 17:28] LABS: *AMPHETAMINES SCREEN URINE NEGATIVE (NEGATIVE); *BARBITURATES SCREEN URINE NEGATIVE (NEGATIVE)
[2019-02-23 17:29] LABS: *BENZODIAZEPINES SCREEN URINE NEGATIVE (NEGATIVE); *COCAINE SCREEN URINE NEGATIVE (NEGATIVE); CANNABINOID URINE SCREEN NEGATIVE (NEGATIVE); METHADONE URINE SCREEN NEGATIVE (NEGATIVE); OPIATES URINE SCREEN NEGATIVE (NEGATIVE); PHENCYCLIDINE URINE SCREEN NEGATIVE (NEGATIVE)
[2019-02-23] MEDS ORDERED: ONDANSETRON HCL 4MG/2ML INJ IV ONE (19:45)
[2019-02-24] MEDS ORDERED: SODIUM CHLORIDE 0.9% 1,000 ML IV NR (00:58)
[2019-02-24] MEDS ORDERED: LORAZEPAM 2MG/ML CPJ IV NR (01:00)
[2019-02-24 05:47] VITALS: BP 104/62
== END 2019-02-24 06:44 | disposition home or self-care (01) ==
LOC: ER 13:43
DX: F10.129 Alcohol abuse with intoxication, unspecified (principal); R51 Headache; I10 Essential (primary) hypertension; F15.10 Other stimulant abuse, uncomplicated; R56.9 Unspecified convulsions; Y90.9 Presence of alcohol in blood, level not specified
CPT/HCPCS: 36415; 70450; 71045; 73130; 80053; 80305; 80320; 85025; 93005; 96374; 96375; 99284; J1885; J2060; J2405; J7030; G0480

== ENCOUNTER 2019-03-01 20:40 | Emergency (ER) | payer SELFPAY ==
[~2019-03-01] VITALS: Ht 167.6 cm; Wt 73.0 kg
[2019-03-01] MEDS ORDERED: SODIUM CHLORIDE 0.9% 1,000 ML IV ONE (21:25)
[2019-03-01 22:41] LABS: HEMATOCRIT. 42.4 % (42.0-52.0); HEMOGLOBIN. 14.7 g/dL (14.0-18.0); MEAN CORPUSCULAR HEMOGLOBIN 31.5 pg (28.0-32.0); MEAN CORPUSCULAR VOLUME 90.6 fL (80.0-94.0); MEAN PLATELET VOLUME 7.5 fl (7.4-10.4); PLATELET 160 x1000/uL (130-400); RED BLOOD CELL COUNT 4.68 mill/uL (4.7-6.1); RED CELL DISTRIBUTION WIDTH 13.8 % (11.6-14.6)
[2019-03-01 22:47] LABS: CHLORIDE 110 mEq/L (98-107)
[2019-03-01 23:00] LABS: PLATELET ESTIMATE NORMAL
[2019-03-01 23:12] LABS: ETHANOL BLOOD 447 mg/dL
[2019-03-02] MEDS ORDERED: SODIUM CHLORIDE 0.9% 1,000 ML IV ONE (00:43)
[2019-03-02 03:10] VITALS: BP 99/47
== END 2019-03-02 08:00 | disposition home or self-care (01) ==
LOC: ER 20:40
DX: F10.229 Alcohol dependence with intoxication, unspecified (principal); Y90.8 Blood alcohol level of 240 mg/100 ml or more
CPT/HCPCS: 36415; 80053; 80320; 83690; 85025; 99283; J7030; G0480

== ENCOUNTER 2019-03-03 10:32 | Emergency (ER) | payer SELFPAY ==
[~2019-03-03] VITALS: Ht 162.6 cm; Wt 73.0 kg
[2019-03-03] MEDS ORDERED: HALOPERIDOL LACTATE 5MG/ML VIAL IM ONE (13:30)
[2019-03-03 16:49] VITALS: BP 115/84
[2019-03-03] MEDS ORDERED: ONDANSETRON HCL 4MG/2ML INJ IM ONE (17:15)
== END 2019-03-03 17:30 | disposition home or self-care (01) ==
LOC: ER 10:32
DX: F10.129 Alcohol abuse with intoxication, unspecified (principal); R45.1 Restlessness and agitation; Y90.9 Presence of alcohol in blood, level not specified
CPT/HCPCS: 82962; 96372; 99283; J1630; J2405

== ENCOUNTER 2019-03-04 20:07 | Emergency (ER) | payer MEDICAID ==
[~2019-03-04] VITALS: Ht 157.5 cm; Wt 77.0 kg
[2019-03-05 03:11] VITALS: BP 115/68
== END 2019-03-05 03:14 | disposition home or self-care (01) ==
LOC: ER 20:07
DX: F10.229 Alcohol dependence with intoxication, unspecified (principal); I10 Essential (primary) hypertension; K76.9 Liver disease, unspecified; Y90.9 Presence of alcohol in blood, level not specified
CPT/HCPCS: 82962; 99283

== ENCOUNTER 2019-03-07 11:15 | Emergency (ER) | payer MEDICAID ==
[~2019-03-07] VITALS: Ht 165.1 cm; Wt 72.0 kg
[2019-03-07] MEDS ORDERED: FOLIC ACID 1 MG, THIAMINE HCL 100 MG, MVI, ADULT NO.1 10 ML in DEXTROSE 5% WATER 1,000 ML IV ONE ×4 (12:00)
[2019-03-07 12:53] LABS: CHLORIDE 108 mEq/L (98-107)
[2019-03-07 13:09] LABS: ETHANOL BLOOD 486 mg/dL
[2019-03-07 15:55] VITALS: BP 107/75
== END 2019-03-07 16:05 | disposition home or self-care (01) ==
LOC: ER 11:15
DX: F10.229 Alcohol dependence with intoxication, unspecified (principal); Y90.8 Blood alcohol level of 240 mg/100 ml or more
CPT/HCPCS: 36415; 80048; 80320; 83690; 96365; 99283; J3411; J3490; J7070; G0480

== ENCOUNTER 2019-03-07 21:23 | Emergency (ER) | payer MEDICAID ==
[~2019-03-07] VITALS: Ht 157.5 cm; Wt 64.0 kg
[2019-03-07] MEDS ORDERED: CHLORDIAZEPOXIDE 25MG CAPSULE PO ONE (22:15)
[2019-03-07] MEDS ORDERED: IBUPROFEN 600MG TABLET PO ONE (22:15)
[2019-03-08 00:26] LABS: BASOPHILS % 1.3 % (0.0-2.0); EOSINOPHILS % 0.9 % (0.0-5.0); HEMATOCRIT. 43.9 % (42.0-52.0); HEMOGLOBIN. 15.5 g/dL (14.0-18.0); LYMPHOCYTES % 49.1 % (20.0-50.0); MEAN CORPUSCULAR HEMOGLOBIN 31.7 pg (28.0-32.0); MEAN CORPUSCULAR VOLUME 89.9 fL (80.0-94.0); MEAN PLATELET VOLUME 6.9 fl (7.4-10.4); NEUTROPHILS % 40.7 % (40.0-76.0); PLATELET 184 x1000/uL (130-400); RED BLOOD CELL COUNT 4.88 mill/uL (4.7-6.1); RED CELL DISTRIBUTION WIDTH 13.5 % (11.6-14.6)
[2019-03-08 00:50] LABS: ETHANOL BLOOD 462 mg/dL
[2019-03-08 03:51] LABS: CLARITY URINE CLEAR (CLEAR); COLOR URINE YELLOW (YELLOW); KETONES URINE NEGATIVE (NEGATIVE); LEUKOCYTE ESTERASE URINE NEGATIVE (NEGATIVE); NITRITE URINE NEGATIVE (NEGATIVE); OCCULT BLOOD URINE NEGATIVE (NEGATIVE); PROTEIN URINE NEGATIVE (NEGATIVE); SPECIFIC GRAVITY URINE 1.003 (1.005-1.030); UROBILINOGEN URINE 0.2 E.U./dL (0.2-1.0)
[2019-03-08 04:00] LABS: *AMPHETAMINES SCREEN URINE NEGATIVE (NEGATIVE); *BARBITURATES SCREEN URINE NEGATIVE (NEGATIVE); *BENZODIAZEPINES SCREEN URINE NEGATIVE (NEGATIVE); CANNABINOID URINE SCREEN NEGATIVE (NEGATIVE); PHENCYCLIDINE URINE SCREEN NEGATIVE (NEGATIVE)
[2019-03-08 04:01] LABS: *COCAINE SCREEN URINE NEGATIVE (NEGATIVE); METHADONE URINE SCREEN NEGATIVE (NEGATIVE); OPIATES URINE SCREEN NEGATIVE (NEGATIVE)
[2019-03-08 06:00] VITALS: BP 118/79
== END 2019-03-08 06:30 | disposition home or self-care (01) ==
LOC: ER 21:23
DX: F10.229 Alcohol dependence with intoxication, unspecified (principal); Y90.8 Blood alcohol level of 240 mg/100 ml or more
CPT/HCPCS: 36415; 80305; 80307; 80320; 80329; 81003; 99283; G0480

== ENCOUNTER 2019-03-08 20:19 | Emergency (ER) | payer MEDICAID ==
[~2019-03-08] VITALS: Ht 157.5 cm; Wt 64.0 kg
[2019-03-09 02:50] VITALS: BP 124/76
== END 2019-03-09 03:30 | disposition home or self-care (01) ==
LOC: ER 20:19
DX: T51.0X1A Toxic effect of ethanol, accidental (unintentional), initial encounter (principal); Y90.8 Blood alcohol level of 240 mg/100 ml or more; Y92.488 Other paved roadways as the place of occurrence of the external cause
CPT/HCPCS: 36415; 80320; 99283; G0480

== ENCOUNTER 2019-03-09 20:28 | Emergency (ER) | payer MEDICAID ==
[~2019-03-09] VITALS: Ht 170.2 cm; Wt 73.0 kg
[2019-03-10] MEDS ORDERED: SODIUM CHLORIDE 0.9% 1,000 ML IV ONE (02:55)
[2019-03-10] MEDS ORDERED: FAMOTIDINE 20MG/2ML VIAL IV STA (02:55)
[2019-03-10] MEDS ORDERED: ONDANSETRON HCL 4MG/2ML INJ IV STA (02:55)
[2019-03-10 03:38] LABS: BASOPHILS % 0.8 % (0.0-2.0); EOSINOPHILS % 0.8 % (0.0-5.0); HEMATOCRIT. 43.1 % (42.0-52.0); HEMOGLOBIN. 15.2 g/dL (14.0-18.0); LYMPHOCYTES % 28.8 % (20.0-50.0); MEAN CORPUSCULAR HEMOGLOBIN 31.4 pg (28.0-32.0); MEAN CORPUSCULAR VOLUME 89.2 fL (80.0-94.0); MEAN PLATELET VOLUME 6.7 fl (7.4-10.4); MONOCYTES % 8.9 % (2.0-8.0); NEUTROPHILS % 60.7 % (40.0-76.0); PLATELET 147 x1000/uL (130-400); RED BLOOD CELL COUNT 4.83 mill/uL (4.7-6.1); RED CELL DISTRIBUTION WIDTH 13.3 % (11.6-14.6)
[2019-03-10 03:40] LABS: CLARITY URINE CLEAR (CLEAR); COLOR URINE YELLOW (YELLOW); KETONES URINE NEGATIVE (NEGATIVE); LEUKOCYTE ESTERASE URINE NEGATIVE (NEGATIVE); NITRITE URINE NEGATIVE (NEGATIVE); OCCULT BLOOD URINE NEGATIVE (NEGATIVE); PROTEIN URINE TRACE (NEGATIVE); SPECIFIC GRAVITY URINE 1.016 (1.005-1.030); UROBILINOGEN URINE 0.2 E.U./dL (0.2-1.0)
[2019-03-10 03:43] LABS: CHLORIDE 108 mEq/L (98-107)
[2019-03-10 03:45] LABS: INR 1.1
[2019-03-10 04:17] LABS: ETHANOL BLOOD 328 mg/dL
[2019-03-10 07:48] VITALS: BP 114/73
== END 2019-03-10 07:54 | disposition home or self-care (01) ==
LOC: ER 20:28
DX: F10.229 Alcohol dependence with intoxication, unspecified (principal); R07.0 Pain in throat; Y90.8 Blood alcohol level of 240 mg/100 ml or more
CPT/HCPCS: 36415; 71045; 80053; 80320; 81003; 83690; 85025; 85610; 86850; 86900; 86901; 96361; 96374; 96375; 99284; J2405; J3490; J7030; G0480

== ENCOUNTER 2019-05-01 18:20 | Emergency (ER) | payer MEDICAID ==
[~2019-05-01] VITALS: Ht 162.6 cm; Wt 68.0 kg
[2019-05-01] MEDS ORDERED: ONDANSETRON HCL 4MG/2ML INJ IV STA (20:11)
[2019-05-01] MEDS ORDERED: SODIUM CHLORIDE 0.9% 1,000 ML IV ONE (20:11)
[2019-05-01 20:38] LABS: BASOPHILS % 0.8 % (0.0-2.0); EOSINOPHILS % 0.9 % (0.0-5.0); HEMATOCRIT. 49.2 % (42.0-52.0); HEMOGLOBIN. 16.7 g/dL (14.0-18.0); LYMPHOCYTES % 39.3 % (20.0-50.0); MEAN CORPUSCULAR HEMOGLOBIN 30.2 pg (28.0-32.0); MEAN CORPUSCULAR VOLUME 88.7 fL (80.0-94.0); MEAN PLATELET VOLUME 7.7 fl (7.4-10.4); MONOCYTES % 9.8 % (2.0-8.0); NEUTROPHILS % 49.2 % (40.0-76.0); PLATELET 258 x1000/uL (130-400); RED BLOOD CELL COUNT 5.54 mill/uL (4.7-6.1); RED CELL DISTRIBUTION WIDTH 13.4 % (11.6-14.6)
[2019-05-01 20:41] LABS: CHLORIDE 107 mEq/L (98-107)
[2019-05-01 20:55] LABS: ETHANOL BLOOD 351 mg/dL
[2019-05-02 03:55] LABS: *AMPHETAMINES SCREEN URINE NEGATIVE (NEGATIVE); *BARBITURATES SCREEN URINE NEGATIVE (NEGATIVE); *BENZODIAZEPINES SCREEN URINE NEGATIVE (NEGATIVE); *COCAINE SCREEN URINE NEGATIVE (NEGATIVE)
[2019-05-02 03:56] LABS: METHADONE URINE SCREEN NEGATIVE (NEGATIVE); OPIATES URINE SCREEN NEGATIVE (NEGATIVE)
[2019-05-02 03:57] LABS: CANNABINOID URINE SCREEN NEGATIVE (NEGATIVE); PHENCYCLIDINE URINE SCREEN NEGATIVE (NEGATIVE)
[2019-05-02 08:04] VITALS: BP 127/72
== END 2019-05-02 08:07 | disposition home or self-care (01) ==
LOC: ER 19:07
DX: F10.229 Alcohol dependence with intoxication, unspecified (principal); I10 Essential (primary) hypertension; E78.00 Pure hypercholesterolemia, unspecified; Y90.8 Blood alcohol level of 240 mg/100 ml or more
CPT/HCPCS: 36415; 80053; 80305; 80320; 85025; 96374; 99283; J2405; J7030; Z7610; G0480

== ENCOUNTER 2019-05-30 17:08 | Emergency (ER) | payer MEDICAID ==
[~2019-05-30] VITALS: Ht 167.6 cm; Wt 65.0 kg
[2019-05-31 02:21] VITALS: BP 122/90
== END 2019-05-31 02:26 | disposition home or self-care (01) ==
LOC: ER 17:18
DX: S90.31XA Contusion of right foot, initial encounter (principal); F10.229 Alcohol dependence with intoxication, unspecified; I10 Essential (primary) hypertension; E78.00 Pure hypercholesterolemia, unspecified; X58.XXXA Exposure to other specified factors, initial encounter; Y93.89 Activity, other specified; Y92.89 Other specified places as the place of occurrence of the external cause; Y99.8 Other external cause status; Y90.8 Blood alcohol level of 240 mg/100 ml or more
CPT/HCPCS: 36415; 73630; 80320; 99284; G0480

== ENCOUNTER 2019-06-04 20:32 | Emergency (ER) | payer MEDICAID ==
[~2019-06-04] VITALS: Ht 162.6 cm; Wt 73.0 kg
[2019-06-04] MEDS ORDERED: ONDANSETRON HCL 4MG/2ML INJ IV ONE (21:15)
[2019-06-04] MEDS ORDERED: FOLIC ACID 1 MG, THIAMINE HCL 100 MG, MVI, ADULT NO.1 10 ML in DEXTROSE 5% WATER 1,000 ML IV ONE ×4 (21:15)
[2019-06-05 03:42] VITALS: BP 119/79
== END 2019-06-05 07:10 | disposition home or self-care (01) ==
LOC: ER 20:49
DX: G92 Toxic encephalopathy (principal); R11.0 Nausea; F10.229 Alcohol dependence with intoxication, unspecified; Y90.8 Blood alcohol level of 240 mg/100 ml or more; E78.00 Pure hypercholesterolemia, unspecified; I10 Essential (primary) hypertension
CPT/HCPCS: 36415; 70450; 80320; 82962; 99284; J3411; J3490; J7070; G0480

== ENCOUNTER 2019-07-08 23:23 | Emergency (ER) | payer MEDICAID ==
[~2019-07-08] VITALS: Ht 170.2 cm; Wt 73.0 kg
[2019-07-09] MEDS ORDERED: SODIUM CHLORIDE 0.9% 1,000 ML IV ONE (01:04)
[2019-07-09] MEDS ORDERED: CHLORDIAZEPOXIDE 25MG CAPSULE PO ONE (01:15)
[2019-07-09] MEDS ORDERED: FOLIC ACID 1 MG, THIAMINE HCL 100 MG, MVI, ADULT NO.1 10 ML in DEXTROSE 5% WATER 1,000 ML IV ONE ×4 (01:15)
[2019-07-09 01:27] LABS: BASOPHILS % 0.5 % (0.0-2.0); EOSINOPHILS % 0.9 % (0.0-5.0); HEMATOCRIT. 46.7 % (42.0-52.0); HEMOGLOBIN. 15.9 g/dL (14.0-18.0); MEAN CORPUSCULAR HEMOGLOBIN 29.6 pg (28.0-32.0); MEAN CORPUSCULAR VOLUME 86.6 fL (80.0-94.0); MEAN PLATELET VOLUME 7.8 fl (7.4-10.4); MONOCYTES % 11.1 % (2.0-8.0); NEUTROPHILS % 42.5 % (40.0-76.0); PLATELET 175 x1000/uL (130-400); RED BLOOD CELL COUNT 5.39 mill/uL (4.7-6.1); RED CELL DISTRIBUTION WIDTH 14.2 % (11.6-14.6)
[2019-07-09 01:33] LABS: CHLORIDE 109 mEq/L (98-107)
[2019-07-09 01:47] LABS: ETHANOL BLOOD 355 mg/dL
[2019-07-09 03:12] LABS: *AMPHETAMINES SCREEN URINE NEGATIVE (NEGATIVE); *BARBITURATES SCREEN URINE NEGATIVE (NEGATIVE); *BENZODIAZEPINES SCREEN URINE PRESUMTIVE POSITIVE (NEGATIVE); *COCAINE SCREEN URINE NEGATIVE (NEGATIVE); METHADONE URINE SCREEN NEGATIVE (NEGATIVE); OPIATES URINE SCREEN NEGATIVE (NEGATIVE)
[2019-07-09 03:13] LABS: CANNABINOID URINE SCREEN NEGATIVE (NEGATIVE); PHENCYCLIDINE URINE SCREEN NEGATIVE (NEGATIVE)
[2019-07-09 08:37] VITALS: BP 115/75
== END 2019-07-09 08:38 | disposition home or self-care (01) ==
LOC: ER 23:23
DX: F10.129 Alcohol abuse with intoxication, unspecified (principal); Y90.9 Presence of alcohol in blood, level not specified
CPT/HCPCS: 36415; 80053; 80305; 80320; 82962; 85025; 96365; 99283; J3411; J3490; J7030; J7070; Z7610; G0480

== ENCOUNTER 2019-07-17 19:46 | Emergency (ER) | payer MEDICAID ==
[~2019-07-17] VITALS: Ht 165.1 cm; Wt 73.0 kg
[2019-07-18 01:24] LABS: BASOPHILS % 1.2 % (0.0-2.0); EOSINOPHILS % 1.5 % (0.0-5.0); HEMATOCRIT. 42.9 % (42.0-52.0); HEMOGLOBIN. 14.8 g/dL (14.0-18.0); MEAN CORPUSCULAR HEMOGLOBIN 29.7 pg (28.0-32.0); MEAN CORPUSCULAR VOLUME 86.1 fL (80.0-94.0); MEAN PLATELET VOLUME 6.9 fl (7.4-10.4); MONOCYTES % 12.1 % (2.0-8.0); NEUTROPHILS % 38.2 % (40.0-76.0); PLATELET 202 x1000/uL (130-400); RED BLOOD CELL COUNT 4.98 mill/uL (4.7-6.1)
[2019-07-18 01:32] LABS: CHLORIDE 109 mEq/L (98-107)
[2019-07-18 01:42] LABS: ETHANOL BLOOD 292 mg/dL
[2019-07-18 05:59] VITALS: BP 118/74
== END 2019-07-18 06:01 | disposition home or self-care (01) ==
LOC: ER 19:46
DX: F10.129 Alcohol abuse with intoxication, unspecified (principal); Y90.8 Blood alcohol level of 240 mg/100 ml or more
CPT/HCPCS: 36415; 80053; 80320; 85025; 99283; G0480

== ENCOUNTER 2019-07-21 18:24 | Emergency (ER) | payer MEDICAID ==
[~2019-07-21] VITALS: Ht 167.6 cm; Wt 78.0 kg
[2019-07-21] MEDS ORDERED: SODIUM CHLORIDE 0.9% 1,000 ML IV ONE (21:41)
[2019-07-21] MEDS ORDERED: FOLIC ACID 1 MG, THIAMINE HCL 100 MG, MVI, ADULT NO.1 10 ML in DEXTROSE 5% WATER 1,000 ML IV ONE ×4 (21:45)
[2019-07-21 22:32] LABS: HEMATOCRIT. 47.3 % (42.0-52.0); HEMOGLOBIN. 16.3 g/dL (14.0-18.0); MEAN CORPUSCULAR HEMOGLOBIN 29.6 pg (28.0-32.0); MEAN PLATELET VOLUME 7.3 fl (7.4-10.4); PLATELET 228 x1000/uL (130-400); RED CELL DISTRIBUTION WIDTH 14.2 % (11.6-14.6)
[2019-07-21 22:38] LABS: CHLORIDE 108 mEq/L (98-107)
[2019-07-21 22:57] LABS: PLATELET ESTIMATE NORMAL
[2019-07-21 22:59] LABS: ETHANOL BLOOD 350 mg/dL
[2019-07-22 05:02] VITALS: BP 115/78
[2019-07-27] MEDS ORDERED: CHLO10CA71 MT (12:29)
== END 2019-07-22 05:05 | disposition home or self-care (01) ==
LOC: ER 18:24
DX: F10.229 Alcohol dependence with intoxication, unspecified (principal); Y90.8 Blood alcohol level of 240 mg/100 ml or more
CPT/HCPCS: 36415; 70450; 71045; 80053; 80320; 85025; 93005; 96365; 99284; J3411; J3490; J7030; J7070; G0480

== ENCOUNTER 2019-07-23 13:33 | Emergency (ER) | payer MEDICAID ==
[~2019-07-23] VITALS: Ht 170.2 cm; Wt 68.0 kg
[2019-07-23] MEDS ORDERED: SODIUM CHLORIDE 0.9% 1,000 ML IV ONE (18:54)
[2019-07-23] MEDS ORDERED: ONDANSETRON HCL 4MG/2ML INJ IV STA (18:54)
[2019-07-23] MEDS ORDERED: FOLIC ACID 1 MG, THIAMINE HCL 100 MG, MVI, ADULT NO.1 10 ML in DEXTROSE 5% WATER 1,000 ML IV ONE ×4 (19:00)
[2019-07-23 19:18] LABS: CHLORIDE 103 mEq/L (98-107)
[2019-07-23 19:19] LABS: BASOPHILS % 0.7 % (0.0-2.0); EOSINOPHILS % 0.8 % (0.0-5.0); HEMATOCRIT. 47.9 % (42.0-52.0); HEMOGLOBIN. 16.3 g/dL (14.0-18.0); LYMPHOCYTES % 33.7 % (20.0-50.0); MEAN CORPUSCULAR HEMOGLOBIN 29.3 pg (28.0-32.0); MEAN CORPUSCULAR VOLUME 86.1 fL (80.0-94.0); MEAN PLATELET VOLUME 7.2 fl (7.4-10.4); NEUTROPHILS % 58.8 % (40.0-76.0); PLATELET 224 x1000/uL (130-400); RED BLOOD CELL COUNT 5.56 mill/uL (4.7-6.1); RED CELL DISTRIBUTION WIDTH 14.2 % (11.6-14.6)
[2019-07-23 19:38] LABS: PARTIAL THROMBOPLASTIN TIME 31.5 sec (23.4-31.0); PROTHROMBIN TIME 10.2 sec (9.6-11.0)
[2019-07-23 19:42] LABS: ETHANOL BLOOD 381 mg/dL
[2019-07-24] MEDS ORDERED: ONDANSETRON HCL 4MG/2ML INJ IV NR (01:30)
[2019-07-24] MEDS ORDERED: LORAZEPAM 2MG/ML CPJ IV ONE (01:30)
[2019-07-24 05:43] VITALS: BP 108/64
[2019-07-27] MEDS ORDERED: CHLO10CA71 MT (12:29)
== END 2019-07-24 05:46 | disposition home or self-care (01) ==
LOC: ER 13:33
DX: G93.40 Encephalopathy, unspecified (principal); K29.20 Alcoholic gastritis without bleeding; R41.82 Altered mental status, unspecified; Y90.8 Blood alcohol level of 240 mg/100 ml or more
CPT/HCPCS: 36415; 70450; 80053; 80320; 83690; 83880; 84443; 84484; 85025; 85610; 85730; 93005; 96365; 96366; 96375; 99284; J2060; J2405; J3411; J3490; J7030; J7070; G0480

== ENCOUNTER 2019-07-24 18:28 | Inpatient (IN) | payer MEDICAID, OTHER ==
[~2019-07-24] VITALS: Ht 165.1 cm; Wt 71.2 kg
[2019-07-24] MEDS ORDERED: ONDANSETRON HCL 4MG/2ML INJ IV STA (20:28)
[2019-07-24] MEDS ORDERED: SODIUM CHLORIDE 0.9% 1,000 ML IV ONE (20:28)
[2019-07-24] MEDS ORDERED: FOLIC ACID 1 MG, THIAMINE HCL 100 MG, MVI, ADULT NO.1 10 ML in DEXTROSE 5% WATER 1,000 ML IV ONE ×4 (20:30)
[2019-07-24 21:36] LABS: BASOPHILS % 0.4 % (0.0-2.0); EOSINOPHILS % 0.9 % (0.0-5.0); LYMPHOCYTES % 29.9 % (20.0-50.0); MEAN CORPUSCULAR HEMOGLOBIN 29.5 pg (28.0-32.0); MEAN CORPUSCULAR VOLUME 86.4 fL (80.0-94.0); MEAN PLATELET VOLUME 7.4 fl (7.4-10.4); MONOCYTES % 6.9 % (2.0-8.0); NEUTROPHILS % 61.9 % (40.0-76.0); PLATELET 178 x1000/uL (130-400); RED CELL DISTRIBUTION WIDTH 14.3 % (11.6-14.6)
[2019-07-24 21:43] LABS: CHLORIDE 108 mEq/L (98-107)
[2019-07-24 21:59] LABS: ETHANOL BLOOD 374 mg/dL
[2019-07-24 23:11] LABS: *AMPHETAMINES SCREEN URINE NEGATIVE (NEGATIVE); *BENZODIAZEPINES SCREEN URINE NEGATIVE (NEGATIVE); *COCAINE SCREEN URINE NEGATIVE (NEGATIVE); CANNABINOID URINE SCREEN NEGATIVE (NEGATIVE); PHENCYCLIDINE URINE SCREEN NEGATIVE (NEGATIVE)
[2019-07-24 23:12] LABS: METHADONE URINE SCREEN NEGATIVE (NEGATIVE); OPIATES URINE SCREEN NEGATIVE (NEGATIVE)
[2019-07-24 23:13] LABS: *BARBITURATES SCREEN URINE NEGATIVE (NEGATIVE)
[2019-07-25] MEDS ORDERED: CHLORDIAZEPOXIDE 25MG CAPSULE PO ONE ×2 (05:45→15:00)
[2019-07-25] MEDS ORDERED: LORAZEPAM 2MG/ML CPJ IV ONE ×2 (06:15→07:15)
[2019-07-25] MEDS ORDERED: FAMOTIDINE 20MG/2ML VIAL IV SCH (13:30)
[2019-07-25] MEDS ORDERED: SODIUM CHLORIDE 0.9% 1000ML BAG (SEPSIS BOLUS) IV NR (13:30)
[2019-07-25] MEDS ORDERED: CHLORDIAZEPOXIDE 25MG CAPSULE PO SCH (14:00)
[2019-07-25] MEDS: ONDANSETRON HCL 4MG/2ML INJ IV PRN ×2 (14:20→23:52)
[2019-07-25 15:40] LABS: BASOPHILS % 0.2 % (0.0-2.0); EOSINOPHILS % 0.5 % (0.0-5.0); HEMATOCRIT. 40.7 % (42.0-52.0); LYMPHOCYTES % 10.5 % (20.0-50.0); MEAN CORPUSCULAR HEMOGLOBIN 29.5 pg (28.0-32.0); MEAN PLATELET VOLUME 7.5 fl (7.4-10.4); MONOCYTES % 6.1 % (2.0-8.0); NEUTROPHILS % 82.7 % (40.0-76.0); PLATELET 127 x1000/uL (130-400); RED BLOOD CELL COUNT 4.73 mill/uL (4.7-6.1); RED CELL DISTRIBUTION WIDTH 14.2 % (11.6-14.6)
[2019-07-25 17:25] VITALS: BP 137/79
[2019-07-25] MEDS ORDERED: LORAZEPAM 2MG/ML CPJ IV PRN (18:15)
[2019-07-25 18:32] VITALS: BP 137/79
[2019-07-25] MEDS: SODIUM CHLORIDE 0.45% 1,000 ML IV SCH (18:38)
[2019-07-25 20:00] VITALS: BP 136/81
[2019-07-25] MEDS: FAMOTIDINE 20MG TABLET PO SCH (21:40)
[2019-07-25] MEDS: CHLORDIAZEPOXIDE 25MG CAPSULE PO SCH (21:41)
[2019-07-26] VITALS: BP 132/76
[2019-07-26 04:00] VITALS: BP 119/78
[2019-07-26] MEDS: CHLORDIAZEPOXIDE 25MG CAPSULE PO SCH ×3 (05:44→21:08)
[2019-07-26 08:00] VITALS: BP 125/81
[2019-07-26] MEDS: FAMOTIDINE 20MG TABLET PO SCH ×2 (08:53→21:08)
[2019-07-26] MEDS: FOLIC ACID 1MG TABLET PO SCH (08:53)
[2019-07-26] MEDS: SODIUM CHLORIDE 0.45% 1,000 ML IV SCH (11:16)
[2019-07-26] MEDS: ONDANSETRON HCL 4MG/2ML INJ IV PRN (11:28)
[2019-07-26 12:00] VITALS: BP 114/71
[2019-07-26 12:46] LABS: CHLORIDE 105 mEq/L (98-107)
[2019-07-26 12:49] LABS: BASOPHILS % 0.4 % (0.0-2.0); EOSINOPHILS % 0.7 % (0.0-5.0); HEMATOCRIT. 42.1 % (42.0-52.0); HEMOGLOBIN. 14.8 g/dL (14.0-18.0); LYMPHOCYTES % 11.1 % (20.0-50.0); MEAN CORPUSCULAR HEMOGLOBIN 29.9 pg (28.0-32.0); MEAN CORPUSCULAR VOLUME 84.8 fL (80.0-94.0); MONOCYTES % 6.7 % (2.0-8.0); NEUTROPHILS % 81.1 % (40.0-76.0); PLATELET 117 x1000/uL (130-400); RED BLOOD CELL COUNT 4.96 mill/uL (4.7-6.1); RED CELL DISTRIBUTION WIDTH 13.9 % (11.6-14.6)
[2019-07-26] MEDS ORDERED: POTASSIUM CHLORIDE 20MEQ TABLET SR PO NR (13:30)
[2019-07-26 15:03] LABS: CHLORIDE 104 mEq/L (98-107)
[2019-07-26 16:00] VITALS: BP 122/69
[2019-07-26 20:00] VITALS: BP 129/81
[2019-07-27] VITALS: BP 128/84
[2019-07-27] MEDS: SODIUM CHLORIDE 0.45% 1,000 ML IV SCH (03:25)
[2019-07-27 04:00] VITALS: BP 115/68
[2019-07-27] MEDS: CHLORDIAZEPOXIDE 25MG CAPSULE PO SCH ×2 (05:52→12:51)
[2019-07-27 08:00] VITALS: BP 91/48
[2019-07-27] MEDS: FAMOTIDINE 20MG TABLET PO SCH (08:56)
[2019-07-27] MEDS: FOLIC ACID 1MG TABLET PO SCH (08:56)
[2019-07-27 12:00] VITALS: BP 105/64
[2019-07-27] MEDS ORDERED: CHLO10CA71 MT (12:29)
== END 2019-07-27 16:28 | disposition home or self-care (01) | DRG 775 ==
LOC: EDBD → ER 18:28 → 5WST 07-25 08:04 → EDBEDREQ 07-25 08:07 → ENRESERV 07-25 15:16
PROVIDERS: ADMIT Family Medicine; ATTEND Family Medicine
DX: F10.239 Alcohol dependence with withdrawal, unspecified (principal); G93.40 Encephalopathy, unspecified; E86.0 Dehydration; Z59.0 Homelessness; R00.0 Tachycardia, unspecified; Y90.9 Presence of alcohol in blood, level not specified
CPT/HCPCS: 36415; 80053; 80305; 80320; 85025; 99285; J2060; J2405; J3411; J3490; J7030; J7040; J7070; G0480

== ENCOUNTER 2019-07-29 21:59 | Emergency (ER) | payer MEDICAID ==
[~2019-07-29] VITALS: Ht 170.2 cm; Wt 77.0 kg
[~2019-07-29 21:59] MED LIST: CHLO10CA71 MT
[2019-07-29] MEDS ORDERED: ASPIRIN 81MG TABLET PO ONE (22:30)
[2019-07-29] MEDS ORDERED: LORAZEPAM 2MG/ML CPJ IM PRN (22:30)
[2019-07-30 00:06] LABS: CHLORIDE 112 mEq/L (98-107)
[2019-07-30 00:09] LABS: HEMATOCRIT. 46.3 % (42.0-52.0); HEMOGLOBIN. 15.5 g/dL (14.0-18.0); MEAN CORPUSCULAR HEMOGLOBIN 29.6 pg (28.0-32.0); MEAN CORPUSCULAR VOLUME 88.2 fL (80.0-94.0); MEAN PLATELET VOLUME 7.5 fl (7.4-10.4); PLATELET 163 x1000/uL (130-400); RED BLOOD CELL COUNT 5.25 mill/uL (4.7-6.1); RED CELL DISTRIBUTION WIDTH 14.7 % (11.6-14.6)
[2019-07-30 00:25] LABS: ETHANOL BLOOD 354 mg/dL
[2019-07-30 00:26] LABS: PLATELET ESTIMATE NORMAL
[2019-07-30 05:57] VITALS: BP 108/98
== END 2019-07-30 05:58 | disposition home or self-care (01) ==
LOC: ER 21:59
DX: F10.229 Alcohol dependence with intoxication, unspecified (principal); R07.89 Other chest pain; Y90.8 Blood alcohol level of 240 mg/100 ml or more
CPT/HCPCS: 36415; 80053; 80320; 83880; 84484; 85025; 93005; 96372; 99284; J2060; G0480

== ENCOUNTER 2019-10-26 12:03 | Emergency (ER) | payer SELFPAY ==
[~2019-10-26] VITALS: Ht 160 cm; Wt 64.0 kg
[2019-10-26 13:03] LABS: CHLORIDE 105 mEq/L (98-107)
[2019-10-26 13:06] LABS: BASOPHILS % 2.4 % (0.0-2.0); EOSINOPHILS % 0.9 % (0.0-5.0); HEMATOCRIT. 43.8 % (42.0-52.0); MEAN CORPUSCULAR HEMOGLOBIN 30.6 pg (28.0-32.0); MEAN CORPUSCULAR VOLUME 89.5 fL (80.0-94.0); MEAN PLATELET VOLUME 6.8 fl (7.4-10.4); NEUTROPHILS % 64.7 % (40.0-76.0); PLATELET 100 x1000/uL (130-400); RED BLOOD CELL COUNT 4.89 mill/uL (4.7-6.1); RED CELL DISTRIBUTION WIDTH 14.6 % (11.6-14.6)
[2019-10-26 13:18] LABS: ETHANOL BLOOD 498 mg/dL
[2019-10-26 17:21] VITALS: BP 111/66
== END 2019-10-26 17:22 | disposition home or self-care (01) ==
LOC: ER 12:03
DX: F10.229 Alcohol dependence with intoxication, unspecified (principal); Y90.8 Blood alcohol level of 240 mg/100 ml or more
CPT/HCPCS: 36415; 80053; 80320; 85025; 99285; G0480

== ENCOUNTER 2021-01-02 11:38 | Emergency (ER) | payer MEDICAID ==
[~2021-01-02] VITALS: Ht 165.1 cm; Wt 68.0 kg
[2021-01-02 11:39] VITALS: BP 148/91
== END 2021-01-02 13:00 | disposition home or self-care (01) ==
LOC: ER 11:38
DX: H61.23 Impacted cerumen, bilateral (principal); K76.9 Liver disease, unspecified
CPT/HCPCS: 99282

== ENCOUNTER 2023-11-06 17:35 | Emergency (ER) | payer MEDICAID ==
[~2023-11-06] VITALS: Ht 167.6 cm; Wt 79.0 kg
[~2023-11-06 17:35] MED LIST changes: -CHLO10CA71 MT; +L10 MT
[2023-11-06 17:47] VITALS: TEMP 98; O2SAT 100
[2023-11-06 18:16] LABS: BASOPHILS % 0.2 % (0.0-2.0); EOSINOPHILS % 1.2 % (0.0-5.0); HEMATOCRIT. 45.3 % (42.0-52.0); HEMOGLOBIN. 15.7 g/dL (14.0-18.0); LYMPHOCYTES % 21.8 % (20.0-50.0); MEAN CORPUSCULAR HEMOGLOBIN 28.6 pg (28.0-32.0); MEAN CORPUSCULAR HGB CONC 34.6 g/dL (31.0-37.0); MEAN CORPUSCULAR VOLUME 82.6 fL (80.0-94.0); MEAN PLATELET VOLUME 8.9 fl (7.4-10.4); MONOCYTES % 8.4 % (2.0-8.0); NEUTROPHILS % 68.4 % (40.0-76.0); PLATELET 167 x1000/uL (130-400); RED BLOOD CELL COUNT 5.49 mill/uL (4.7-6.1); RED CELL DISTRIBUTION WIDTH 14.3 % (11.6-14.6); WHITE BLOOD COUNT 7.5 x1000/uL (4.5-11.0)
[2023-11-06 19:41] LABS: CHLORIDE 107 mEq/L (98-107); POTASSIUM 3.6 mEq/L (3.5-5.1); SODIUM 139 mEq/L (136-145)
[2023-11-06] MEDS: KETOROLAC 60MG/2ML VIAL IM ONE (19:41)
[2023-11-06] MEDS: ONDANSETRON 4MG ODT PO ONE (19:41)
[2023-11-06 19:42] LABS: CARBON DIOXIDE 21 mEq/L (21-32)
[2023-11-06 19:44] LABS: CLARITY URINE CLEAR (CLEAR); COLOR URINE YELLOW (YELLOW); GLUCOSE URINE NEGATIVE (NEGATIVE); KETONES URINE 1+ (NEGATIVE); LEUKOCYTE ESTERASE URINE NEGATIVE (NEGATIVE); NITRITE URINE NEGATIVE (NEGATIVE); OCCULT BLOOD URINE NEGATIVE (NEGATIVE); PROTEIN URINE NEGATIVE (NEGATIVE); SPECIFIC GRAVITY URINE 1.021 (1.005-1.030); UROBILINOGEN URINE 0.2 E.U./dL (0.2-1.0)
[2023-11-06 19:47] LABS: CREATININE 0.8 mg/dL (0.6-1.3); GLUCOSE 90 mg/dL (70-105); UREA NITROGEN BLOOD 9 mg/dL (9-23)
[2023-11-06 19:49] LABS: ALANINE AMINOTRANSFERASE 81 IU/L (10-49); ALBUMIN 4.8 g/dL (3.2-4.8); ASPARTATE AMINOTRANSFERASE 44 IU/L (<34); PROTEIN TOTAL 8.4 g/dL (6.0-8.3)
[2023-11-06] MEDS ORDERED: FAMO-135 PO (20:45)
[2023-11-06 21:20] VITALS: BP 111/58; PULSE 65; RESP 16
== END 2023-11-06 21:30 | disposition home or self-care (01) ==
LOC: ER 17:35
DX: R10.33 Periumbilical pain (principal); K76.0 Fatty (change of) liver, not elsewhere classified; D64.9 Anemia, unspecified
CPT/HCPCS: 80053; 81003; 83880; 83690; 85025; 36415; 74176; 96372; 99285; Q0162; J1885; Z7610 ×2

== ENCOUNTER 2024-10-06 05:00 | Emergency (ER) | payer MEDICAID ==
[~2024-10-06] VITALS: Ht 167.6 cm; Wt 91.0 kg
[~2024-10-06 05:00] MED LIST changes: +FAMO-135 PO
[2024-10-06 05:34] VITALS: O2SAT 99
[2024-10-06] MEDS: ONDANSETRON 4MG ODT PO STA (05:47)
[2024-10-06 07:06] LABS: BASOPHILS % 0.2 % (0.0-2.0); EOSINOPHILS % 4.1 % (0.0-5.0); HEMATOCRIT. 47.5 % (42.0-52.0); HEMOGLOBIN. 16.1 g/dL (14.0-18.0); LYMPHOCYTES % 19.9 % (20.0-50.0); MEAN CORPUSCULAR HEMOGLOBIN 28.5 pg (28.0-32.0); MEAN CORPUSCULAR HGB CONC 33.9 g/dL (31.0-37.0); MEAN CORPUSCULAR VOLUME 84.1 fL (80.0-94.0); NEUTROPHILS % 63.8 % (40.0-76.0); PLATELET 154 x1000/uL (130-400); RED BLOOD CELL COUNT 5.65 mill/uL (4.7-6.1); RED CELL DISTRIBUTION WIDTH 13.9 % (11.6-14.6); WHITE BLOOD COUNT 4.5 x1000/uL (4.5-11.0)
[2024-10-06 07:10] LABS: CHLORIDE 103 mEq/L (98-107); POTASSIUM 3.7 mEq/L (3.5-5.1); SODIUM 136 mEq/L (136-145)
[2024-10-06 07:11] LABS: CALCIUM 8.8 mg/dL (8.7-10.4); CARBON DIOXIDE 21 mEq/L (21-32)
[2024-10-06 07:16] LABS: CREATININE 0.8 mg/dL (0.6-1.3); GLUCOSE 111 mg/dL (70-105); UREA NITROGEN BLOOD 11 mg/dL (9-23)
[2024-10-06 07:18] LABS: ALANINE AMINOTRANSFERASE 33 IU/L (10-49); ALBUMIN 4.4 g/dL (3.2-4.8); ASPARTATE AMINOTRANSFERASE 23 IU/L (<34); BILIRUBIN DIRECT 0.2 mg/dL (<=3.0); BILIRUBIN TOTAL 0.7 mg/dL (0.1-1.0); PROTEIN TOTAL 7.9 g/dL (6.0-8.3)
[2024-10-06] MEDS ORDERED: ONDA-239 PO (07:20)
[2024-10-06 07:45] VITALS: BP 115/87; PULSE 98; RESP 12; TEMP 36.9; O2SAT 98
== END 2024-10-06 07:55 | disposition home or self-care (01) ==
LOC: ER 05:00
DX: A08.4 Viral intestinal infection, unspecified (principal); K76.9 Liver disease, unspecified; Z79.899 Other long term (current) drug therapy
CPT/HCPCS: 99283; 80076; 80048; 85025; 36415; Q0162